=== PATIENT | female | born 1995 | race Caucasian/White ===

== ENCOUNTER 2023-06-30 22:55 | Emergency (ER) | payer MEDICAID ==
[~2023-06-30] VITALS: Ht 165.1 cm; Wt 90.9 kg
[2023-06-30 22:59] VITALS: BP 116/74; PULSE 63; RESP 16; TEMP 98.5; O2SAT 99
[2023-06-30 23:29] LABS: URINE HCG NEGATIVE (NEG)
[2023-06-30 23:32] LABS: BILIRUBIN,URINE NEGATIVE (Neg); CLARITY,URINE CLEAR (Clear); COLOR,URINE YELLOW (Yellow); GLUCOSE, URINE NEGATIVE (Neg); KETONES,URINE NEGATIVE (Neg); LEUKOCYTE ESTERASE ,URINE NEGATIVE (Neg); NITRITES, URINE NEGATIVE (Neg); OCCULT BLOOD,URINE NEGATIVE (Neg); PH,URINE 6.5 (4.8-8.0); PROTEIN,URINE NEGATIVE (Neg); UROBILINOGEN,URINE 0.2 E.U/dL (0.2-1.0)
[2023-06-30 23:35] LABS: UA COLLECTION TYPE CLN CATCH MIDSTREAM
--- NOTE | 2023-07-01 00:59 | NUR ---
PT LEFT. PT SEEN LEAVING THE ER BY STAFF
[2023-07-01 01:11] LABS: BASOPHILS # (AUTO) 0.1 X10'3 (0-0.2); BASOPHILS % (AUTO) 0.6 % (0-1); EOSINOPHILS # (AUTO) 0.1 X10'3 (0-0.9); EOSINOPHILS % (AUTO) 1.4 % (0-6); HEMATOCRIT 37.9 % (35.0-45.0); LYMPHOCYTES # (AUTO) 2.5 X10'3 (1.1-4.8); LYMPHOCYTES % (AUTO) 28.9 % (21-51); MEAN CORPUSCULAR HEMOGLOBIN 31.8 PG (27.0-31.0); MEAN CORPUSCULAR HGB CONC 34.3 g/dL (33.0-36.5); MEAN CORPUSCULAR VOLUME 92.5 FL (78-98); MEAN PLATELET VOLUME 7.9 FL (7.4-10.4); MONOCYTES # (AUTO) 0.5 X10'3 (0-0.9); NEUTROPHILS # (AUTO) 5.5 X10'3 (1.8-7.7); NEUTROPHILS % (AUTO) 63.1 % (42-75); PLATELET COUNT 271 X10'3 (140-440); RED BLOOD COUNT 4.09 X10'6 (4.20-5.60); RED CELL DISTRIBUTION WIDTH 13.2 % (11.5-14.5); WHITE BLOOD COUNT 8.7 X10'3 (4.5-11.0)
[2023-07-01 01:23] LABS: ALANINE AMINOTRANSFERASE 25 U/L (12-78); ALBUMIN/GLOBULIN RATIO 1.1 (1.1-1.5); ALKALINE PHOSPHATASE 90 IU/L (46-116); ANION GAP 5 (8-16); ASPARTATE AMINO TRANSFERASE 20 U/L (10-37); BILIRUBIN,TOTAL 1.2 MG/DL (0.1-1.0); BLOOD UREA NITROGEN 10 MG/DL (7-18); BUN/CREATININE RATIO 15.9 (10.0-20.0); CALCIUM 9.2 MG/DL (8.5-10.1); CHLORIDE 108 MMOL/L (99-107); CREATININE 0.63 MG/DL (0.40-0.90); GLUCOSE 97 MG/DL (70-104); POTASSIUM 3.4 MMOL/L (3.5-5.1); SODIUM 139 MMOL/L (135-145); TOTAL CARBON DIOXIDE 25.7 MMOL/L (24-32); TOTAL PROTEIN 7.5 G/DL (6.4-8.2); eCRCL 122 ML/MIN; eGFR > 90 ML/MIN
[2023-07-01 01:26] LABS: LIPASE 37 U/L (16-77)
== END 2023-07-01 01:00 | disposition left against medical advice (07) ==
LOC: ER 22:57
DX: R10.9 Unspecified abdominal pain (principal); Z53.21 Procedure and treatment not carried out due to patient leaving prior to being seen by health care provider
CPT/HCPCS: 36415; 80053; 81003; 81025; 83690; 85025; 99281

== ENCOUNTER 2025-04-12 12:00 | Emergency (ER) | payer MEDICAID ==
[~2025-04-12] VITALS: Ht 170.2 cm; Wt 103.0 kg
[2025-04-12 12:07] VITALS: BP 98/62; PULSE 98; RESP 20; O2SAT 98
[2025-04-12] MEDS ORDERED: CIPR2.5D21 EACHEYE (12:56)
--- NOTE | 2025-04-12 12:57 | Physician Documentation ---
History of Present Illness ~ Chief Complaint: Eye Pain Stated Complaint: PINK EYE Time Seen by MD: 12:10 OK to notify your PCP?: Yes Source: patient Mode of Arrival: POV Exam Limitations: no limitations HPI 29-year-old female presents with bilateral eye itching and watering which started this morning. Her 2-year-old toddler is with her today and has bilateral pinkeye and she believes that she is now getting it as well. She has not taken any medications for her symptoms. She has no other upper respiratory symptoms. Medication Reconciliation Allergies: Coded Allergies: Penicillins (Verified Allergy, Unknown, 06/30/23) Scheduled Ciprofloxacin Hcl Ophth* (Ciloxan 0.35 Ophth Drops*), 1-2 DROP EACHEYE Q4HWA Review of Systems All Other Systems at this time: Reviewed and Negative Physical Exam Vital Signs: RN Vital Signs have been reviewed: Yes, Temperature: 98.9, Source: Oral, Heart Rate: 98, Respiratory Rate: 20, BP: 98/62, Pulse Oximetry: 98, Weight: 103.000 Oxygen Flow Rate: 0 Pulse Oximetry Reflects: adequate oxygenation Physical Exam General: Alert, no distress. HEENT: moist mucous membranes. PERRLA, EOMI. Sclera white, conjunctival injection bilaterally, yellow crusting discharge noted to right eye. Neck: Full range of motion. Respiratory: No respiratory distress, equal chest rise and fall. Chest: No accessory muscle use. Cardiovascular: Regular rate and rhythm. Gastrointestinal: Nondistended. Extremities: Normal range of motion, no deformity. Neurologic: Oriented x4. Psychiatric: Normal mood and affect. Skin: Normal color, warm and dry. Progress Results/Orders Reviewed/noted all lab results: Yes Results/Orders Vital Signs 04/12/25 04/12/25 12:07 13:01 Temp 98.9 98.9 Pulse 98 Resp 20 B/P (MAP) 98/62 Pulse Ox 98 O2 Flow Rate 0 Medical Decision Making Additional info obtained from: old records Findings She is presenting today with her toddler who has pinkeye. She is starting to show symptoms and does have some crusting seen to the right eye. The rest of her physical exam is unremarkable. She is afebrile and vital signs are stable. I prescribed her Cipro drops and she should follow up with her primary care provider. We discussed the importance of good hand hygiene. She agrees with th is plan. Eye Diff. Dx: Considerations: Include: Corneal abrasion, Foreign body-corneal, Foreign body-intraocular, Globe rupture, Hordeolum, Orbital cellulitis, Periobital cellulitis, Rust ring, Subconjunctival hem, Uveitis, Vitreous h emorrhage Departure Disposition: HOME / SELF CARE / HOMELESS Impression: Primary Impression: Bacterial conjunctivitis of both eyes Condition: Stable Discharge Instructions: Bacterial Conjunctivitis, Adult, [id number] Referrals: NO PRIMARY CARE PROVIDER (PCP) Prescriptions Ciprofloxacin Hcl Ophth* (Ciloxan 0.35 Ophth Drops*) 2.5 Ml Bottle 1-2 DROP EACHEYE Q4HWA for 7 Days, #5 ML Prov: JENNIFER MONAHAN 04/12/25 Education Educated: Patient Educated regarding: diagnosis, treatment, prognosis, need for follow up Additional Comment Medical Screen Exam This patient recieved a medical screening examination. After reviewing the individual's medical complaints with presenting symptoms and performing an appropriate physical examination, it was determined that no immediate life- threatening emergency medical condition is present. This individual is also not a women having contractions. Signature Scribe Signature: . Attestation: Scribed for Jennifer Monahanp by Jennifer Pulliam NP . 04/12/25 13:17 Parts of this note were created using [employer] voice recognition software program. While efforts were made to correct any mistakes made by this voice recognition software program, nonsensical phrases may remain in this note. In addition, there may be errors and syntax, grammar, content and spelling. JENNIFER MONAHAN Apr 12, 2025 12:57
[2025-04-12 13:01] VITALS: TEMP 98.9
== END 2025-04-12 13:03 | disposition home or self-care (01) ==
LOC: ER 12:00
DX: H10.89 Other conjunctivitis (principal); Z88.0 Allergy status to penicillin
CPT/HCPCS: 99283